=== PATIENT | female | born 1955 | race Caucasian/White ===

== ENCOUNTER → 2018-03-03 | Outpatient (CLI) | payer MEDICARE ==
--- NOTE | 2018-03-03 20:25 | CT ---
EXAMINATION TYPE: CT sinus wo con DATE OF EXAM: 03/03/2018 COMPARISON: 01/19/2007 HISTORY: Chronic sinusitis. CT DLP: 561 mGycm. Automated Exposure Control for Dose Reduction was Utilized. TECHNIQUE: CT scan of the sinuses is performed without contrast, axial images are obtained, coronal r eformatted images are also reviewed. FINDINGS: There is fairly normal development and aeration of the paranasal sinuses. There is minimal mucosal thickening in the anterior ethmoid air cells. There is bilateral patency of the ostiomeatal c omplex. I see no bony destructive process. Mastoid sinuses appear normal. IMPRESSION: Minimal ethmoid sinusitis is improved compared to old exam.
== END | disposition home or self-care (01) ==
LOC: RADCTMAIN 19:10
PROVIDERS: ATTEND Family Medicine
DX: J32.2 Chronic ethmoidal sinusitis (principal)
CPT/HCPCS: 70486

== ENCOUNTER → 2021-05-05 | Outpatient (CLI) | payer MEDICARE ==
--- NOTE | 2021-05-05 16:51 | CT ---
EXAMINATION TYPE: CT angio chest DATE OF EXAM: 05/05/2021 COMPARISON: 09/29/2015 HISTORY: 66-year-old female SOB TECHNIQUE: Contiguous axial scanning of the chest performed with IV Contrast, patient injected with 7 0cc mL of Isovue 370. Coronal/sagittal MIP reconstructions performed. CT DLP: 585 mGycm Automated exposure control for dose reduction was used. FINDINGS: Heart normal size without pericardial effusion. No flattening of the interventricular septum or reflu x of contrast into the hepatic veins. Aorta normal caliber with minimal atherosclerotic arch calcifications and bovine configuration to the aortic arch. No thoracic lymphadenopathy. Suboptimal contrast bolus. No large central or definite lobar branch pulmonary embolus. Allowing for the exam limitations, no definite pulmonary embolus elsewhere in the lungs. Mild diffuse bronchial wall thickening. Some patchy opacity anterior right midlung has a more strandy appearance on the other planes suggesting atelectasis or scarring.. Mild centrilobular emphysema. 4 mm anterior right upper lobe pulmonary nodule is unchanged. Some strandy atelectasis in the inferio r lingula. No consolidation or pleural effusion. Small hiatal hernia. Prominent ingested debris within the stomach. Low-density nodule right adrenal gland measuring 1.1 cm suggesting a lipid rich adrenal adenoma. Low- density thickening left adrenal gland unchanged. Cholecystectomy clips. Bones: Mild degenerative disc disease mid to lower thoracic spine. IMPRESSION: 1. SUBOPTIMAL CONTRAST BOLUS. NO DEFINITE PULMONARY EMBOLUS. 2. COPD WITH MILD EMPHYSEMA. SOME STRANDY AREAS OF ATELECTASIS OR SCARRING. 3. SMALL HIATAL HERNIA.
== END | disposition home or self-care (01) ==
LOC: RADCTMAIN 15:43
PROVIDERS: ATTEND Internal Medicine
DX: J43.9 Emphysema, unspecified (principal); K44.9 Diaphragmatic hernia without obstruction or gangrene
CPT/HCPCS: 71275; Q9967

== ENCOUNTER → 2021-06-11 | Outpatient (CLI) | payer MEDICARE ==
--- NOTE | 2021-06-11 18:00 | ECHOF ---
Referral Reason:R06.09 Dyspnea MEASUREMENTS -------- HEIGHT: 152.4 cm WEIGHT: 95.3 kg BP: RVIDd: 2.6 cm (< 3.3) IVSd: 0.9 cm (0.6 - 1.1) LVIDd: 4.8 cm (3.9 - 5.3) LVPWd: 1.1 cm (0.6 - 1.1) IVSs: 1.2 cm LVIDs: 3.3 cm LVPWs: 1.2 cm LA Diam: 3.9 cm (2.7 - 3.8) Ao Diam: 2.8 cm (2.0 - 3.7) AV Cusp: 1.8 cm (1.5 - 2.6) MV EXCURSION: 14.577 mm (> 18.000) MV EF SLOPE: 72 mm/s (70 - 150) EPSS: 0.2 cm MV E Jose Eduardo: 0.61 m/s MV DecT: 217 ms MV A Jose Eduardo: 0.67 m/s MV E/A Ratio: 0.91 RAP: 5.00 mmHg RVSP: 37.12 mmHg FINDINGS -------- Sinus rhythm. This was a technically adequate study. LV size, wall thickness and systolic function are normal, with an EF greater than 55%. The left britton tricular size is normal. The diastolic filling pattern is normal for the age of the patient 8.13. The right ventricle is normal in size. The left atrial size is normal. The right atrial size is normal. The aortic valve is trileaflet, and appears structurally normal. No aortic stenosis or regurgitation. The mitral valve is normal. Mild mitral regurgitation is present. The tricuspid valve appears structurally normal. Mild tricuspid regurgitation present. There is m ild pulmonary hypertension. The right ventricular systolic pressure, as measured by Doppler, is 37. 12mmHg. There is no pulmonic regurgitation present. The aortic root size is normal. There is no pericardial effusion. CONCLUSIONS -------- 1. LV size, wall thickness and systolic function are normal, with an EF greater than 55%. 2. The aortic valve is trileaflet, and appears structurally normal. No aortic stenosis or regurgitati on. 3. Mild mitral regurgitation is present. 4. Mild tricuspid regurgitation present. 5. There is mild pulmonary hypertension. 6. There is no pericardial effusion. PAINTER DECORATOR: Alicia Almonte RDCS
== END | disposition home or self-care (01) ==
LOC: RADECHMAIN 13:47
PROVIDERS: ATTEND Internal Medicine
DX: I34.0 Nonrheumatic mitral (valve) insufficiency (principal); I07.1 Rheumatic tricuspid insufficiency; I27.20 Pulmonary hypertension, unspecified
CPT/HCPCS: 93306

== ENCOUNTER 2021-06-14 19:56 | Emergency (ER) | payer MEDICARE ==
[2021-06-14 20:20] VITALS: TEMP 98.4
[2021-06-14 21:40] VITALS: BP 99/63; PULSE 60; RESP 20
--- NOTE | 2021-06-14 21:47 | ED ---
Extremity Problem HPI - General Chief complaint: Extremity Problem,Nontraumatic Stated complaint: DVT Time Seen by Provider: 06/14/21 21:12 Source: patient, RN notes reviewed, old records reviewed Mode of arrival: wheelchair Limitations: no limitations - History of Present Illness Initial comments: This is a 66-year-old female to the emergency department today. Patient presents today for evaluation right lower Shorty pain and swelling right leg pain and swelling with some redness. History of DVT, patient is blood thinners. No recent trauma or fevers. No injury no back pain no other complaints MD Complaint: extremity pain, extremity swelling (Right lower extremity), joint pain -: days(s) Location: right, lower extremity -: Yes myalgia, Yes arthralgia Radiation: proximal Severity scale (1-10): 5 Quality: burning, stabbing, aching Consistency: intermittent Improves with: nothing Worsens with: nothing Associated Symptoms: denies other symptoms - Related Data Home Medications Medication Instructions Recorded Confirmed ALPRAZolam [Xanax] 0.5 mg PO TID PRN 11/07/14 11/11/14 Aspirin 81 mg PO QAM 11/07/14 11/11/14 Betamethasone Dipropionate 1 applic TOPICAL BID PRN 11/07/14 11/11/14 [Diprolene 0.05% Ointment] Cyclobenzaprine [Flexeril] 10 mg PO HS 11/07/14 11/11/14 Erythromycin [Yash-Tab] 250 mg PO Q8HR 11/07/14 11/11/14 Estrogens, Conjugated [Premarin] 0.625 mg PO QAM 11/07/14 11/11/14 Furosemide [Lasix] 20 mg PO MOWEFR 11/07/14 11/11/14 Gabapentin [Neurontin] 100 mg PO TID 11/07/14 11/11/14 HYDROcodone/APAP 10-325MG [[place] 1 each PO Q12H PRN 11/07/14 11/11/14 10-325] Hydrocortisone/Iodoquinol 1 applic TP BID PRN 11/07/14 11/11/14 [Hydrocortisone-Iodoquinol Crm] Meloxicam [Mobic] 15 mg PO QAM 11/07/14 11/11/14 Metaxalone [Skelaxin] 800 mg PO BID 11/07/14 11/11/14 Metoclopramide [Reglan] 10 mg PO DAILY 11/07/14 11/11/14 Ondansetron [Zofran ODT] 8 mg PO Q8HR PRN 11/07/14 11/11/14 Promethazine [Phenergan] 50 mg PO Q6HR PRN 11/07/14 11/11/14 Ranitidine HCl [Zantac] 300 mg PO DAILY PRN 11/07/14 11/11/14 Sertraline [Zoloft] 100 mg PO HS 11/07/14 11/11/14 Solifenacin Succinate [Vesicare] 10 mg PO QAM 11/07/14 11/11/14 Xopenex Hfa Inhaler (Dose Ukn) 1 puff INHALATION DIRECTED PRN 11/07/14 11/11/14 amLODIPine [Norvasc] 5 mg PO QAM 11/07/14 11/11/14 armodafiniL [Nuvigil] 75 mg PO QAM 11/07/14 11/11/14 Previous Rx's Medication Instructions Recorded Cephalexin [Keflex] 500 mg PO Q6HR #40 cap 06/14/21 Allergies Allergy/AdvReac Type Severity Reaction Status Date / Time adhesive Allergy Rash/Hives Verified 06/14/21 20:18 Sulfa (Sulfonamide Allergy Unknown Verified 06/14/21 20:18 Antibiotics) Review of Systems ROS Statement: Those systems with pertinent positive or pertinent negative responses have been documented in the HPI. ROS Other: All systems not noted in ROS Statement are negative. Past Medical History Past Medical History: CVA/TIA, Fibromyalgia, GERD/Reflux, Skin Disorder Additional Past Medical History / Comment(s): some numbness rt side of face, scleroderma, abnormal renal labs, gastroparesis. See Dr. Sweeney H&P. History of Any Multi-Drug Resistant Organisms: None Reported Past Surgical History: Breast Surgery, Cholecystectomy, Heart Catheterization, Hysterectomy, Orthopedic Surgery, Tonsillectomy, Tubal Ligation Additional Past Surgical History / Comment(s): heller myotomy, cataracts, 3 c- sections, left breast lumpectomy, wrist surgery Past Anesthesia/Blood Transfusion Reactions: Postoperative Nausea & Vomiting (PONV) Past Psychological History: Anxiety, Depression Smoking Status: Current every day smoker Past Alcohol Use History: None Reported Past Drug Use History: None Reported - Past Family History father Family Medical History: Cancer Additional Family Medical History / Comment(s): kidney General Exam Limitations: no limitations General appearance: alert, in no apparent distress Head exam: Present: atraumatic, normocephalic, normal inspection Eye exam: Present: normal appearance, PERRL, EOMI. Absent: scleral icterus, conjunctival injection, periorbital swelling ENT exam: Present: normal exam, mucous membranes moist Neck exam: Present: normal inspection. Absent: tenderness, meningismus, lymphadenopathy Respiratory exam: Present: normal lung sounds bilaterally. Absent: respiratory distress, wheezes, rales, rhonchi, stridor Cardiovascular Exam: Present: regular rate, normal rhythm, normal heart sounds. Absent: systolic murmur, diastolic murmur, rubs, gallop, clicks GI/Abdominal exam: Present: soft, normal bowel sounds. Absent: distended, tenderness, guarding, rebound, rigid Extremities exam: Present: normal inspection, full ROM, normal capillary refill. Absent: tenderness, pedal edema, joint swelling, calf tenderness Back exam: Present: normal inspection Neurological exam: Present: alert, oriented X3, CN II-XII intact Psychiatric exam: Present: normal affect, normal mood Skin exam: Present: warm, dry, intact, normal color. Absent: rash Course Vital Signs 06/14/21 06/14/21 20:18 21:33 Temperature 98.4 F Pulse Rate 71 60 Respiratory 18 20 Rate Blood Pressure 108/72 99/63 O2 Sat by Pulse 92 L 97 Oximetry Medical Decision Making - Medical Decision Making 66-year-old female with right leg pain. Patient pain and swelling of right leg presented to the ER today. Ultrasound is negative for DVT will treat patient for cellulitis of the right lower extremity return if symptoms worsen - Radiology Data Radiology results: report reviewed (US of right lower extremity is negative for DVT), image reviewed Disposition Clinical Impression: Cellulitis, Cellulitis of right leg Disposition: HOME SELF-CARE Condition: Good Instructions (If sedation given, give patient instructions): Cellulitis (ED), Leg Pain (ED), Leg Edema (ED) Prescriptions: Cephalexin [Keflex] 500 mg PO Q6HR #40 cap Is patient prescribed a controlled substance at d/c from ED?: No Referrals: David Domingo MD [Primary Care Provider] - 1-2 days
--- NOTE | 2021-06-14 22:21 | US ---
EXAMINATION TYPE: US venous doppler duplex LE RT DATE OF EXAM: 06/14/2021 10:14 PM COMPARISON: NONE CLINICAL HISTORY: dvt. right leg edema SIDE PERFORMED: right TECHNIQUE: The lower extremity deep venous system is examined utilizing real time linear array sonog jeff with graded compression, doppler sonography and color-flow sonography. VESSELS IMAGED: Common Femoral Vein Deep Femoral Vein Greater Saphenous Vein * Femoral Vein Popliteal Vein Small Saphenous Vein * Proximal Calf Veins (* superficial vessels) Right Leg: no evidence of DVT IMPRESSION: No evidence of deep vein thrombosis in the right leg.
[2021-06-14] MEDS ORDERED: CEPHALEXIN 500 MG CAP PO STA (22:48)
[2021-06-14] MEDS ORDERED: IBUPROFEN 600 MG TAB PO STA (22:48)
[2021-06-14] MEDS ORDERED: IBUPROFEN 600 MG STARTER PACK 4 TAB BTL PO STA (22:49)
[2021-06-14] MEDS ORDERED: CEPHALEXIN 500MG STARTER PACK 4 CAP BTL PO STA (22:49)
== END 2021-06-14 23:14 | disposition home or self-care (01) ==
LOC: EC 19:56
DX: L03.115 Cellulitis of right lower limb (principal); M79.7 Fibromyalgia; F17.200 Nicotine dependence, unspecified, uncomplicated; Z86.73 Personal history of transient ischemic attack (TIA), and cerebral infarction without residual deficits; Z91.09 Other allergy status, other than to drugs and biological substances; Z88.2 Allergy status to sulfonamides; Z79.82 Long term (current) use of aspirin; Z79.899 Other long term (current) drug therapy
CPT/HCPCS: 99283

== ENCOUNTER → 2023-02-15 | Outpatient (CLI) | payer MEDICARE ==
--- NOTE | 2023-02-15 13:07 | CT ---
EXAMINATION TYPE: CT chest wo con DATE OF EXAM: 02/15/2023 COMPARISON: 05/05/2021 HISTORY: Systemic sclerosis, unspecified; and ILD CT DLP: 268 mGycm. Automated Exposure Control for Dose Reduction was Utilized. TECHNIQUE: CT scan of the thorax is performed without IV contrast. FINDINGS: LUNGS: The lungs are grossly clear, there is a stable 4 mm right upper lobe pulmonary nodule. There is no pleural effusion or pneumothorax seen. Bilateral subsegmental areas of consolidation most like ly atelectasis. No definite focal pneumonia. There is no evidence of intralobular septal thickening t o suggest pulmonary fibrosis. The tracheobronchial tree is patent. Mild centrilobular saphenous guillermo es. Apical pleural thickening. MEDIASTINUM: Lack of IV contrast is noted to limit evaluation for mediastinal and especially hilar ad enopathy. There are no definitive greater than 1 cm hilar or mediastinal lymph nodes. No cardiomega ly or pericardial effusion is seen. Atherosclerotic change aorta. OTHER: Postcholecystectomy changes small hiatal hernia. IMPRESSION: 1. No diagnostic evidence of interstitial pulmonary fibrosis. 2. Stable 4 mm benign-appearing removal pulmonary nodule. 3 subsegmental areas of consolidation bilat erally most atelectasis.
== END | disposition home or self-care (01) ==
LOC: RADCTMAIN 12:23
PROVIDERS: ATTEND Specialist
DX: J98.11 Atelectasis (principal); M34.9 Systemic sclerosis, unspecified; R91.1 Solitary pulmonary nodule
CPT/HCPCS: 71250

== ENCOUNTER → 2023-06-29 | Outpatient (CLI) | payer MEDICARE ==
--- NOTE | 2023-06-30 09:57 | CA ---
Transthoracic Echo Report Name: Debbie Mendoza Age: 68 Gender: F : 1955 Exam Date: 06/29/2023 14:31 Exam Location: [facility] Ht (in): 61 Wt (lb): 175 Ordering Physician: Lizzie Herrera MD Attending/Referring Phys: Artificial Cherry Maker Johanne Clifton RDCS Procedure CPT: Indications: I27.20 PULMONARY HYPERTENSION, UNSPECIFIED Cardiac Hx: Technical Quality: Fair Contrast 1: Total Dose (mL): Contrast 2: Total Dose (mL): MEASUREMENTS (Male / Female) Normal Values 2D ECHO LV Diastolic Diameter PLAX 4.2 cm 4.2 - 5.9 / 3.9 - 5.3 cm LV Systolic Diameter PLAX 2.4 cm IVS Diastolic Thickness 1.2 cm 0.6 - 1.0 / 0.6 - 0.9 cm LVPW Diastolic Thickness 1.5 cm 0.6 - 1.0 / 0.6 - 0.9 cm LV Relative Wall Thickness 0.6 RV Internal Dim ED PLAX 3.0 cm LA Volume 26.6 cm??? 18 - 58 / 22 - 52 cm??? LA Volume Index 14.1 cm???/m??? 16 - 28 cm???/m??? M-MODE Aortic Root Diameter MM 3.1 cm LA Systolic Diameter MM 3.5 cm LA Ao Ratio MM 1.1 AV Cusp Separation MM 2.1 cm DOPPLER AV Peak Velocity 123.9 cm/s AV Peak Gradient 6.1 mmHg AV Mean Velocity 81.6 cm/s AV Mean Gradient 3.1 mmHg AV Velocity Time Integral 18.6 cm LVOT Peak Velocity 101.1 cm/s LVOT Peak Gradient 4.1 mmHg LVOT Velocity Time Integral 17.0 cm MV Area PHT 2.5 cm??? Mitral E Point Velocity 38.6 cm/s Mitral A Point Velocity 73.7 cm/s Mitral E to A Ratio 0.5 MV Deceleration Time 298.8 ms MV E' Velocity 6.3 cm/s Mitral E to MV E' Ratio 6.1 FINDINGS Left Ventricle Mildly increased left ventricular wall thickness. Left ventricular cavity size normal. Normal left ventricular systolic function with no obvious regional wall motion abnormalities. Left ventricular ejection fraction is estimated at 55-60 %. Right Ventricle Normal right ventricular size and function. Right ventricular systolic pressure within normal limits. Right Atrium Normal right atrial size. Left Atrium Normal left atrial size. Mitral Valve Structurally normal mitral valve. Mild mitral regurgitation. Aortic Valve Trileaflet aortic valve. No aortic valve stenosis or regurgitation. Tricuspid Valve Structurally normal tricuspid valve. Mild tricuspid regurgitation. Pulmonic Valve Trace pulmonic regurgitation. Pericardium No pericardial effusion. Aorta Normal size aortic root and proximal ascending aorta. CONCLUSIONS Normal LV size and systolic function Previewed by: Dr. Randall Sweeney MD (Electronically Signed) Final Date: 30 June 2023 09:56
== END | disposition home or self-care (01) ==
LOC: RADECHMAIN 14:22
PROVIDERS: ATTEND Internal Medicine
DX: I27.20 Pulmonary hypertension, unspecified (principal)
CPT/HCPCS: 93306

== ENCOUNTER → 2023-11-09 | Outpatient (CLI) | payer MEDICARE ==
--- NOTE | 2023-11-12 12:56 | MR ---
EXAMINATION TYPE: MR lumbar spine wo con DATE OF EXAM: 11/09/2023 6:31 PM CLINICAL INDICATION:Female, 68 years old with history of M54.16 RADICULOPATHY, LUMBAR REGION; PHH, Lo w back pain into Right side COMPARISON: 2009 TECHNIQUE: Multi planar, multi sequence imaging was performed utilizing: T1-weighted, T2-weighted, a nd turbo inversion recovery imaging of the lumbar spine. IV Contrast: cc . (None if empty) FINDINGS: Alignment: The lumbar vertebral bodies have preserved heights with grade 1 anterolisthesis of L4 on L 5. Cord: The conus medullaris and the distal spinal cord appear unremarkable with regards to their signa l intensity and morphology. Bones/Discs: Mild degeneration changes throughout the spine with osteophyte formation and facet joint arthropathy. Intervertebral disc signal is maintained. Pseudarthrosis of the spinous processes. T12-L1: No evidence of significant spinal canal stenosis or neural foraminal stenosis. L1-L2: No evidence of significant spinal canal stenosis or neural foraminal stenosis. L2-L3: Disc bulge and facet joint arthropathy result in moderate spinal canal and severe right and mi ld left neural foraminal stenosis. L3-L4: Disc bulge and facet joint arthropathy result in moderate to severe spinal canal and moderate to severe right and moderate left bilateral neural foraminal stenosis. L4-L5: Disc uncovering from grade 1 anterolisthesis and facet joint arthropathy with mild spinal tammie l stenosis and mild to moderate bilateral neural foraminal stenosis. L5-S1: The disc is rounded posterior morphology without significant spinal canal stenosis. Facet join t arthropathy with mild bilateral neural foraminal stenosis. No significant spinal canal or neural foraminal stenosis in the remainder of the visualized levels. Other findings: None. IMPRESSION: Overall findings progressed from 2009. 1. No definitive evidence of disc herniation or significant spinal canal stenosis. 2. L3-L4 disc bulge with moderate to severe spinal canal stenosis. There is moderate to severe right neural foraminal stenosis. 3. L2-L3 severe right neural foraminal stenosis. 4. Grade 1 anterolisthesis of L4 and L5 with mild to moderate bilateral neural foraminal stenosis. 5. Findings suggestive of Baastrup's disease.
== END | disposition home or self-care (01) ==
LOC: RADMRIMAIN 17:32
PROVIDERS: ATTEND Orthopaedic Surgery
DX: M51.16 Intervertebral disc disorders with radiculopathy, lumbar region (principal); M48.061 Spinal stenosis, lumbar region without neurogenic claudication; M43.16 Spondylolisthesis, lumbar region; M99.73 Connective tissue and disc stenosis of intervertebral foramina of lumbar region
CPT/HCPCS: 72148

== ENCOUNTER → 2024-01-02 | Outpatient (CLI) | payer MEDICARE ==
--- NOTE | 2024-01-02 18:48 | MR ---
EXAMINATION TYPE: MR cervical spine wo con DATE OF EXAM: 01/02/2024 5:46 PM CLINICAL INDICATION:Female, 68 years old with history of M54.2 CERVICALGIA M62.81 MUSCLE WEAKNESS (GE NERALI; PHH, Loss of balance and stiff neck. COMPARISON: none. TECHNIQUE: Multi planar, multi sequence imaging was performed utilizing: T1-weighted, T2-weighted, an d turbo inversion recovery imaging of the cervical spine. IV Contrast: cc (none if empty) FINDINGS: Alignment: The cervical vertebral bodies have preserved heights. There is straightening of the cervic al alignment.. Bones: Osteophytes and disc space narrowing most pronounced at the C5-C7 vertebral levels. Cord: The spinal cord is unremarkable with regards to their signal intensity and morphology. Discs: Intervertebral disc signal is maintained. C2-C3: No significant disc pathology. The spinal canal is patent. No neural foraminal stenosis. C3-C4: No significant disc pathology. The spinal canal is patent. Bilateral facet and uncovertebral joint arthropathy are present with moderate right and mild left neural foraminal stenosis. C4-C5: No significant disc pathology. The spinal canal is patent. Bilateral facet and uncovertebral joint arthropathy are present with mild bilateral neural foraminal stenosis. C5-C6: No significant disc pathology. The spinal canal is patent. Bilateral facet and uncovertebral joint arthropathy are present with mild bilateral neural foraminal stenosis. C6-C7: No significant disc pathology. The spinal canal is patent. No neural foraminal stenosis. C7-T1: No significant disc pathology. The spinal canal is patent. No neural foraminal stenosis. IMPRESSION: 1. No evidence for disc herniation or significant spinal canal stenosis. 2. Mild disc degeneration with associated osteoarthritic changes. Neural foraminal stenosis worse at C3-C4 and moderate.
== END | disposition home or self-care (01) ==
LOC: RADMRIMAIN 17:03
PROVIDERS: ATTEND Orthopaedic Surgery
DX: M50.30 Other cervical disc degeneration, unspecified cervical region (principal); M99.71 Connective tissue and disc stenosis of intervertebral foramina of cervical region
CPT/HCPCS: 72141

== ENCOUNTER → 2024-02-27 | Outpatient (CLI) | payer MEDICARE ==
[2024-02-27 13:19] VITALS: BP 106/72; PULSE 66; RESP 16
--- NOTE | 2024-02-27 15:06 | P.PAINPG ---
PQRS Measure Charge Sheet Comment: HISTORY OF PRESENT ILLNESS: A 68 yr old female as a referral from Dr Palacios presents today w severe and chronic LBP > 1 yr secondary to DDD, spondylosis and facet arthropathy without myelopathy for evaluation. Pt states pain level is provoked at 9 /10 in intensity, constant, localized in the mid lumbar spine, predominantly axial, burning in character w occasional shooting pain up & down the spine. Pain is provoked by standing/ walking for periods > 15 min. Pain is alleviated by physician guided home exercises every other day since Jan [address] Palacios, medications (Zanaflex, [place], Neurontin, Mobic), heat, repositioning and rest . Oswestry axial pain score at 29. PMH: OA, MDD, Hypothyroidism, HTN, Hyperlipidemia, Asthma, Vitamin D Deficiency PSH: Cardiac Loop Implant (2014), SH: Negative x3 FH: Noncontributory All: See list Meds: See list REVIEW OF ORGAN SYSTEMS: CONSTITUTIONAL: No fevers or chills. No recent weight loss. NEUROLOGICAL: + numbness and tingling along the distal extremities. No seizure disorders or headaches. MUSCULOSKELETAL: + pain PSYCHIATRIC: Denies current depression or suicidal thoughts. Physical Examinations : Constitutional : Cooperative , not in acute distress . Neurologic : Cranial nerve II to XII intact. No focal neurological deficits. Psychiatric : alert & oriented x 3. Matching mood & appropriate affect. Judgment & insight intact. Musculoskeletal : Cervical Spine Motor strength in the deltoid and biceps: Normal right side. Normal Left side Motor strength biceps and the wrist extensors: Normal right side . Normal left side Motor strength in the triceps muscle: N ormal right side. Normal left side Deep tendon reflexes: Normal at the biceps. Normal at Brachioradialis. Normal at triceps Vertebral body tenderness to deep palpation over Cervical facet loading test: positive bilaterally Spurling test: positive bilaterally Neck distraction test: positive bilaterally Cain sign: positive bilaterally Lumbar spine Motor strength lower extremities ,thigh and legs 5/5 Right side , 5/5 Left side Deep tendon reflexes : Normal Knee Jerk. Normal Ankle Jerk Vertebral body tenderness over Gonsalves Test positive Lumbar facet Loading Test: positive Right / positive Left L4-L5 Range of motion of the lumbar spine Flexion 30 degrees, extension 10 degrees Straight Leg Raise test: Left/ Right positive at degrees Roe test: positive right / positive left. Severe tenderness over the Sacroiliac joint on the Right / Left sides Gaenslen test: positive bilaterally Seated flexion test: positive bilaterally. Sacral spine : Severe tenderness over the Sacroiliac joint: right side / left side Range of motion: Flexion of the lumbar spine <60 degrees Range of motion: Extension of the lumbar spine <20 degrees Gaenslen's Test positive Roe test: positive right side / left side Thigh Thrust Test Sacral Thrust Test Imaging: MRI noncontrast of the lumbar spine from 11/09/2023 reviewed Assessment/ Plan : L3-L4 stenosis Recommendation of BL MBB L4-L5 #1. May need a series of injections, up until RFA, for optimal pain relief. Risks, benefits of procedure discussed and patient verbalized understanding. Admits to anti- coagulant use or medical history of diabetes. Protocol for discontinuation/ continuation of medications leydi procedure discussed. Minimal anesthesia provided, if clinically indicated, consisting of Versed and Fentanyl. All questions answered. I have spent greater than 30 minutes on patient care today. Dr Grullon was available by phone for the evaluation of this patient. The time was used to review the medical records including relevant urine studies and Prescription history (MAPs), review of the available imaging, evaluation and examination of the patient, coordination of care with the medical staff and if applicable referring physicians, as well as creation of the medical record PQRS Narrative: Smoking Status Current every day smoker Home Medications: Ambulatory Orders ALPRAZolam [Xanax] 0.5 mg PO TID PRN 11/07/14 Aspirin 81 mg PO QAM 11/07/14 Betamethasone Dipropionate [Diprolene 0.05% Ointment] 1 applic TOPICAL BID PRN 11/07/14 Erythromycin [Yash-Tab] 250 mg PO Q8HR 11/07/14 Furosemide [Lasix] 20 mg PO MOWEFR 11/07/14 Gabapentin [Neurontin] 100 mg PO TID 11/07/14 HYDROcodone/APAP 10-325MG [[place] 10-325] 1 each PO Q12H PRN 11/07/14 Meloxicam [Mobic] 15 mg PO QAM 11/07/14 Metoclopramide [Reglan] 10 mg PO DAILY 11/07/14 Ondansetron [Zofran ODT] 8 mg PO Q8HR PRN 11/07/14 Promethazine [Phenergan] 50 mg PO Q6HR PRN 11/07/14 Sertraline [Zoloft] 100 mg PO HS 11/07/14 Xopenex Hfa Inhaler (Dose Ukn) 1 puff INHALATION DIRECTED PRN 11/07/14 amLODIPine [Norvasc] 5 mg PO QAM 11/07/14 raNITIdine HCL [Zantac] 300 mg PO DAILY PRN 11/07/14 Controlled Substance Measures - Controlled Substance Measures Is patient prescribed a controlled substance at discharge?: No
== END ==
LOC: PNWHC3 12:28
PROVIDERS: ATTEND Specialist
DX: M47.896 Other spondylosis, lumbar region (principal); M48.061 Spinal stenosis, lumbar region without neurogenic claudication; F17.200 Nicotine dependence, unspecified, uncomplicated; Z88.2 Allergy status to sulfonamides; Z88.5 Allergy status to narcotic agent; Z91.048 Other nonmedicinal substance allergy status
CPT/HCPCS: 99211

== ENCOUNTER → 2024-08-20 | Outpatient (CLI) | payer MEDICARE ==
--- NOTE | 2024-08-20 15:18 | MR ---
EXAMINATION TYPE: MR angio head wo con DATE OF EXAM: 08/20/2024 2:48 PM COMPARISON: Old CT brain 06/12/2013 CLINICAL INDICATION: Female, 69 years old with history of I69.952 HEMIPLEGIA AND HEMIPARESIS, CVA Lef t hemiplegia affecting speech, Hx Lt breast cancer 2011, Hx stroke 2004 TECHNIQUE: High-resolution 3-D [id number] imaging of the [place]. Rotational 3-D reconst ructions generated on a dedicated independent workstation. FINDINGS: The left vertebral artery is slightly more dominant. Otherwise, both vertebral and basilar arteries as well as the remainder of the posterior circulation is patent. Patent right posterior communicating artery. Diminutive left posterior communicating artery. The bilateral internal carotid arteries and remainder of the anterior circulation show preserved flow related enhancement. No aneurysmal change is identified. IMPRESSION: No large vessel intracranial arterial occlusion, significant stenosis, or aneurysmal change is seen. Some normal anatomic variation as mentioned above. [facility], , 08/20/2024 3:16 PM
== END | disposition home or self-care (01) ==
LOC: RADMRIMAIN 14:22
PROVIDERS: ATTEND Psychiatry & Neurology Neurology
DX: I69.354 Hemiplegia and hemiparesis following cerebral infarction affecting left non-dominant side (principal); Z85.3 Personal history of malignant neoplasm of breast
CPT/HCPCS: 70544

== ENCOUNTER → 2024-11-09 | Outpatient (CLI) | payer MEDICARE ==
--- NOTE | 2024-11-09 14:49 | MR ---
EXAMINATION TYPE: MR angio neck wo/w con DATE OF EXAM: 11/09/2024 2:23 PM COMPARISON: None. CLINICAL INDICATION: Female, 69 years old with history of G45.9 TRANSIENT CEREBRAL ISCHEMIC ATTACK, U NSPECIF, Slurred speech, TIA, Hx Breast cancer 2011,, TECHNIQUE: 2-D and 3-D [id number] imaging of the carotid vasculature of the neck. Additional pre and postcontrast coronal sequences after IV contrast administration. Subtraction images are obtained as well as 3-D reconstructions on a dedicated independent workstation. IV Contrast: 8 cc Gadobutrol (None if empty) FINDINGS: Bovine configuration to the aortic arch. There are some artifacts at the thoracic inlet which limits detailed evaluation at the origin of the vertebral arteries and origin of the common carotid arteries. Retropharyngeal course proximal to mid common carotid arteries. Retropharyngeal course right ICA. The left vertebral artery is slightly more dominant. Otherwise, the bilateral common and internal carotid arteries and vertebral arteries appear patent wi thout significant stenosis. IMPRESSION: Some limitation in assessment at the origin of the vertebral and common carotid arteries due to artif act at the thoracic inlet. Otherwise, no hemodynamically significant carotid or vertebral artery sten osis is identified. [facility], , 11/09/2024 2:47 PM
== END | disposition home or self-care (01) ==
LOC: RADMRIMAIN 13:21
PROVIDERS: ATTEND Psychiatry & Neurology Neurology
DX: G45.9 Transient cerebral ischemic attack, unspecified (principal)
CPT/HCPCS: 70549; A9585

== ENCOUNTER 2024-12-24 13:54 | Day surgery (SDC) | payer MEDICARE ==
[2024-12-20 12:35] VITALS: BMI 33.0
[2024-12-24] MEDS: IV FLUID CONTINUATION 1,000 ML IV ONE (15:00)
[2024-12-24] MEDS: SODIUM CHLORIDE 0.9% 1,000 ML IV SCH (15:06)
[2024-12-24 15:08] VITALS: RESP 16; TEMP 98.4
[2024-12-24] MEDS: LIDOCAINE 1% INJ 10MG/ML (30 ML VIAL-PF) SQ ONE ×2 (15:50→15:55)
[2024-12-24 16:18] VITALS: BP 137/63; PULSE 51
--- NOTE | 2024-12-24 18:10 | P.EPPROC ---
- EP Procedure Note Electrophysiology Procedure Note: Loop monitor implant, [employer] Assert IQ 3+ Primary physicians: [facility] Attendant: Dr. breaux Indication: Cryptogenic stroke Patient was brought to the EP lab in a fasting state. Written informed consent was obtained prior to the procedure. The left pectoral area was prepped and draped per protocol. Intravenous antibiotic was administered preoperatively. A subcutaneous Loop monitor was implanted successfully and the wound was closed per protocol. The device was programmed to detect significant jeanmarie- arrhythmic and tachy-arrhythmic events, per protocol. Device and programming details: A-fib protocol
== END 2024-12-24 16:27 | disposition home or self-care (01) ==
LOC: CATHEP 13:54
PROVIDERS: ATTEND Internal Medicine Clinical Cardiac Electrophysiology
DX: I63.9 Cerebral infarction, unspecified (principal); R47.81 Slurred speech; R20.0 Anesthesia of skin; R47.1 Dysarthria and anarthria; I10 Essential (primary) hypertension; E78.5 Hyperlipidemia, unspecified; M34.9 Systemic sclerosis, unspecified; F17.210 Nicotine dependence, cigarettes, uncomplicated; Z79.82 Long term (current) use of aspirin; Z79.2 Long term (current) use of antibiotics; Z79.631 Long term (current) use of antimetabolite agent; Z79.1 Long term (current) use of non-steroidal anti-inflammatories (NSAID); Z79.890 Hormone replacement therapy; Z79.899 Other long term (current) drug therapy; Z88.2 Allergy status to sulfonamides; Z91.048 Other nonmedicinal substance allergy status
CPT/HCPCS: 33285; C1764; J0690; J2003